=== PATIENT | female | born 1985 | race Caucasian/White ===

== ENCOUNTER → 2020-08-18 | Day surgery (SDC) | payer BC ==
--- OUTSIDE RECORDS SUMMARY | 2020-08-18 10:14 | XMS REPORT | Continuity of Care Document ---
:1985 Author Organization [facility] t Address [address] [place] [address] Care Team Providers Name Role Phone JOHN DAWKINS Primary Care Physician Unavailable YVONNE ARREDONDO Attending Clinician Unavailable Yvonne Arredondo NP Attending Clinician John Dawkins MD Attending Clinician Oscar RUBIO Attending Clinician Unavailable Payers Payer Name Policy Type Policy Number Effective Date Expiration Date S chris [place] [id number] 2019 00:00:00 Problems This patient has no known problems. Allergies, Adverse Reactions, Alerts This patient has no known allergies or adverse reactions. Family History Family Member Diagnosis Comments Start Date Stop Date Source Natural mother Pancreatic cancer MD Martinez Natural sister Breast cancer MD Dread leblanc Social History Social Habit Start Date Stop Date Quantity Comments Source History of tobacco Current every day MD Martinez use smoker Sex Assigned At F MD Ruelas on Exposure to Not sure MD Martinez SARS-CoV-2 (event) Cigarettes smoked 2020-07-24 2020-07-24 MD Dread leblanc current (pack per 00:00:00 00:00:00 day) - Reported Tobacco use and 2020-07-24 2020-07-24 Never used MD Ruelas on exposure 00:00:00 00:00:00 Alcohol intake 2020-07-24 2020-07-24 Current drinker MD Alondra zayas 00:00:00 00:00:00 of alcohol (finding) Tobacco Comment 2020-07-24 2020-07-24 On and off since MD Martinez 00:00:00 00:00:00 2001 Alcohol Comment 2020-07-24 2020-07-24 1-2/month MD Ruelas on 00:00:00 00:00:00 Smoking Status Start Date Stop Date Source Current every day smoker 2020-07-24 00:00:00 MD Martinez Medications Ordered Filled Start Stop Current Ordering Indication Dosage Frequency Signature Comments Components Source Medication Medication Date Date Medication? Clinician (SIG) Name Name traZODone 2019-09 Yes (DESYREL) 0-05 Anderso 100 mg 00:00: n tablet 00 ALPRAZolam Yes (Xanax) 0.5 9-07 Anderso mg tablet 00:00: n 00 ARIPiprazol Yes MD cain (Abilify) 9-07 Anderso 5 mg tablet 00:00: n 00 vilazodone Yes (Viibryd) 9-07 Anderso 40 mg tab 00:00: n 00 fenofibrate Yes (TRIGLIDE) 8-03 Anderso 160 mg 00:00: n tablet 00 nebivolol Yes 10mg Take 10 mg (BYSTOLIC) 7-29 by mouth. Dread rso 10 mg 00:00: n tablet 00 lisinopril Yes (PRINIVIL,Z 6-29 Anderso ESTRIL) 10 00:00: n mg tablet 00 Vital Signs Vital Name Observation Time Observation Value Comments Source HEIGHT 2020-07-24 09:39:19 157.5 cm WEIGHT 2020-07-24 09:39:19 90.71 kg HEIGHT 2020-07-24 09:39:19 157.5 cm WEIGHT 2020-07-24 09:39:19 90.71 kg Systolic blood pressure 2020-07-24 15:39:19 114 mm[Hg] MD Martinez Diastolic blood pressure 2020-07-24 15:39:19 62 mm[Hg] MD Martinez Heart rate 2020-07-24 15:39:19 76 /min MD Dougherty son Respiratory rate 2020-07-24 15:39:19 16 /min MD Blaine conn Body height 2020-07-24 15:39:19 157.5 cm MD Dougherty ernesto Body weight 2020-07-24 15:39:19 90.71 kg MD Dougherty ernesto BMI 2020-07-24 15:39:19 36.57 kg/m2 MD Farhat orozco Body temperature 2020-07-22 21:05:00 36.61 Kelly MD Blaine conn Procedures Procedure Date / Time Performed Performing Clinician [facility] e COVID-19 2020-07-22 21:09:00 Ross Dawkins MD And jes Encounters Start End Encounter Admission Attending Care Care Encounter Source Date/Time Date/Time Type Type Clinicians Facility Department ID 2020-07-24 2020-07-24 Outpatient JOE PICHARDO MDA, MDA [id number] 09:21:19 10:05:41 Suraj hines 2020-07-24 2020-07-24 Outpatient JOE PICHARDO MDA, MDA [id number] 09:18:35 09:19:16 Suraj hines 2020-07-22 2020-07-22 Outpatient MERLIN ARREDONDOJOE MDA, MDA [id number] 15:03:44 15:15:39 Surajdilip hines 2020-07-22 2020-07-22 Outpatient [facility] [id number] [facility]00 [facility] Clinics 2020-06-24 2020-06-24 Outpatient [facility] [id number] [facility]00 [facility] Clinics Results Test Description Test Time Test Comments Results Result Comments Source MD STARKEYIDStuart19 (MAXIM-CoV-2) PCR Asymptomatic 2020-07-23 12:25:58 Test Item Value Reference Range Interpretation Comme nts COVID19 SARS Indication (test New Patient code = 37385) COVID19 SARS Result (test code Not Detected Not Detected = 29630-8) COVID19 SARS Interpretation SARS-CoV-2 NOT Detected. Reference (test code = 57705) Range: Not Detected Methodology: The Denise RealTime SARS-CoV-2 assay is a qualitative real-time reverse air transportation provider polymerase chain reaction (sports health club membership advisors-PCR) test to detect RNA from SARS-CoV-2 in nasal, nasopharyngeal and oropharyngeal swabs from patients with signs and symptoms of infection who are suspected of COVID-19 by their health care provider. The Denise RealTime SARS-CoV-2 performed on the Jetaport000 System is a dual target assay with primers and probes for the RdRp and N genes. Results must be interpreted within the context of all relevant clinical and laboratory findings, and epidemiological risk factors. Positive results are indicative of the presence of SARS-CoV-2 RNA; clinical correlation with patient history and other diagnostic information is necessary to determine patient infection status. Positive results do not rule out bacterial infection or co-infection with other viruses. Negative results do not preclude SARS-CoV-2 infection and should not be used as the sole basis for patient management decisions. The Denise RealTime SARS-CoV-2 assay is for in vitro diagnostic use under FDA Emergency Use Authorization only. Testing is limited to laboratories certified under the Clinical Laboratory Improvement Amendments of 1988 (CLIA), 42U.S.C. 263a, to perform high complexity tests. The Test was performed by the CLIA-certified, high-complexity Molecular Diagnostics Laboratory (MDL) at [facility] under the Food and Drug Administration (FDA) s Emergency Use Authorization. Factsheet for patients: https://www.mdanderson.org/AbbottFactS heetPatientsFactsheet for healthcare providers: https://www.mdanderson.org/AbbottFactS heetHCP Test performed by:[facility] [address] [place] [address] MD Martinez
--- OUTSIDE RECORDS SUMMARY | 2020-08-18 10:14 | XMS REPORT ---
:1985 Author Organization [facility] Address [address], [facility] [address] [place] [address] Care Team Providers Name Role Phone Ezekiel Thacker [phone] PROBLEMS Type Condition ICD9-CM [id number] Onset Condition SNOMED Code Notes Code Code Dates Status Problem Piriformis G57.00 Active 099556924 syndrome Problem Sciatica M54.30 Active 25795196 ALLERGIES No Known Allergies ENCOUNTERS from 1984 to 2020-06-30 Encounter Location Date Provider Diagnosis [facility] [address] Jun, Ezekiel Thacker Pain in pelvis R10.2 [facility] [address] ; [place], [place] bursitis of rig ht hip [id number] M70.61 ; Sciati ca M54.30 and Piri formis syndrome G57.00 IMMUNIZATIONS No Information SOCIAL HISTORY Tobacco Use: Social History Observation Description Date Details (start date - stop date) Current Smoker Sex Assigned At : Social History Observation Description Sex Assigned At Unknown Alcohol Screen Question Answer Notes Did you have a drink containing alcohol in the past Yes year? Points 4 Interpretation Positive How often did you have 6 or more drinks on one Less than mon thly (1 point) occasion in the past year? How many drinks did you have on a typical day when 5 or 6 (2 points) you were drinking in the past year? How often did you have a drink containing alcohol Monthly or less (1 point) in the past year? Tobacco Use/Smoking Question Answer Notes Additional Findings: Tobacco User Heavy cigarette smoker (20 -39 cigs/day) Are you a current smoker How often do you smoke cigarettes? every day REASON FOR REFERRAL No Information VITAL SIGNS Height 62 in Jun, Weight 195 lbs Jun, Temperature 97.1 degrees Fahrenheit Jun, BMI 35.66 kg/m2 Jun, Blood pressure systolic 126 mm Hg Jun, Blood pressure diastolic 84 mm Hg Jun, MEDICATIONS Medication SIG (Take, Route, Frequency, Start Date End Date Status Duration) Tylenol Active Abilify Active Xanax Active Bystolic Active MethylPREDNISolone 4 MG as directed Orally Jun, Active Fenofibrate Active Viibryd Active Lisinopril Active PROCEDURES No Information RESULTS No Results REASON FOR VISIT NEW PT: RT HIP PAIN MEDICAL (GENERAL) HISTORY Type Description Date Medical History HTN Medical History HLD Medical History depression Medical History anxiety Surgical History appendectomy Goals Section No Information Health Concerns No Information MEDICAL EQUIPMENT No Information MENTAL STATUS No Information FUNCTIONAL STATUS No Information ASSESSMENTS Encounter Date Diagnosis Notes Jun, Sciatica (ICD-10 - M54.30) Jun, Trochanteric bursitis of right hip (ICD- 10 - M70.61) Jun, Piriformis syndrome (ICD-10 - G57.00) Jun, Pain in pelvis (ICD-10 - R10.2) PLAN OF TREATMENT Medication Medication Name Sig Start Date Stop Date MethylPREDNISolone 4 MG as directed Orally Jun, Treatment Notes Assessment Notes Clinical Notes Trochanteric bursitis of right hip -proceed with conservativ e treatment measures including a Medrol pack, home exercise program and formal physical therapy-return to clinic in 6 weeks for reevaluation-she will remain out of work during PT as her pain improves and she is able to mobilize without a limp Sciatica -proceed with conservative treatment measures including a Medrol pack, home exercise program and formal physical therapy-return to clinic in 6 weeks for reevaluation-she will remain out of work during PT as her pain improves and she is able to mobilize without a limp Piriformis syndrome -proceed with conservative treatment measures including a Medrol pack, home exercise program and formal physical therapy-return to clinic in 6 weeks for reevaluation-she will remain out of work during PT as her pain improves and she is able to mobilize without a limp Treatment Notes Test Name Order Date XR PELVIS (43626) 2020-06-30 Next Appt Details 6 Weeks Reason: Provider Name:Ezekiel Thacker, 2020-08-05 1 0:00:00 AM, [address], [address], [place], [address], Insurance Providers Payer Name Payer Payer Insured Name Patient Coverage Covera End Address Phone Relationship to Start Date Fly e Insured [employer] [phone] Krishna Newton self and Blue [id number] [facility] [address]
--- OUTSIDE RECORDS SUMMARY | 2020-08-18 10:14 | XMS REPORT ---
:1985 Author Organization [facility] Address [address] , [facility] [address] [place] [address] Care Team Providers Name Role Phone Ezekiel Thacker Unavailable [phone] PROBLEMS Type Condition ICD9-CM [id number] Onset Condition SNOMED Code Notes Code Code Dates Status Problem Piriformis G57.00 Active 548794302 syndrome Problem Sciatica M54.30 Active 10360338 ALLERGIES No Known Allergies ENCOUNTERS from 1984 to 2020-07-24 Encounter Location Date Provider Diagnosis [facility] [address] Jul, Ezekiel Thacker [facility] hanteric bursitis [facility] [address] hip M70.61 ; [place], [place] Pain in pelvis R10.2 [id number] ; Sciatica M54. 30 and Piriformis synd bayron G57.00 IMMUNIZATIONS No Information SOCIAL HISTORY Tobacco Use: Social History Observation Description Date Details (start date - stop date) Current Smoker Sex Assigned At : Social History Observation Description Sex Assigned At Unknown Alcohol Screen Question Answer Notes Did you have a drink containing alcohol in the past year? No Points 0 Interpretation Negative Tobacco Use/Smoking Question Answer Notes Additional Findings: Tobacco User Heavy cigarette smoker (20 -39 cigs/day) Are you a current smoker How often do you smoke cigarettes? every day REASON FOR REFERRAL No Information VITAL SIGNS Height 62 in Jul, Weight 195 lbs Jul, Temperature 97.3 degrees Fahrenheit Jul, BMI 35.66 kg/m2 Jul, Blood pressure systolic 124 mm Hg Jul, Blood pressure diastolic 82 mm Hg Jul, MEDICATIONS Medication SIG (Take, Route, Frequency, Start Date End Date Status Duration) Viibryd Active Lisinopril Active Abilify Active Tylenol Active Fenofibrate Active Bystolic Active Xanax Active MethylPREDNISolone 4 MG as directed Orally Jun, Not-Taking PROCEDURES No Information RESULTS No Results REASON FOR VISIT F/U RT HIP PAIN MEDICAL (GENERAL) HISTORY Type Description Date Medical History HTN Medical History HLD Medical History depression Medical History anxiety Surgical History appendectomy Goals Section No Information Health Concerns No Information MEDICAL EQUIPMENT No Information MENTAL STATUS No Information FUNCTIONAL STATUS No Information ASSESSMENTS Encounter Date Diagnosis Notes Jul, Sciatica (ICD-10 - M54.30) Jul, Pain in pelvis (ICD-10 - R10.2) Jul, Piriformis syndrome (ICD-10 - G57.00) Jul, Trochanteric bursitis of right hip (ICD- 10 - M70.61) PLAN OF TREATMENT Treatment Notes Assessment Notes Clinical Notes Trochanteric bursitis of right hip -pain has improved-comple te PT and continue with home exercises-f/u as needed-may return to work next Saturday 07/28 without restrictions Sciatica -pain has improved-complete PT and continue with home exercises-f/u as needed-may return to work next Saturday 07/28 without restrictions Piriformis syndrome -pain has improved-complete PT and continue with home exercises-f/u as needed-may return to work next Saturday 07/28 without restrictions Next Appt Details prn Reason: Insurance Providers Payer Name Payer Payer Insured Name Patient Coverage Covera ge End Address Phone Relationship to Start Date Fly e Insured [employer] [phone] Krishna Newton self and Blue [id number] [facility] [address]
--- NOTE | 2020-08-18 11:33 | RAD REPORT ---
EXAM DESCRIPTION: US - Breast Core BX w/US Guidance - 08/18/2020 10:49 am CLINICAL HISTORY: N63.13 COMPARISON: July 22 mammogram and ultrasound studies. TECHNIQUE: The patient presents for ultrasound-guided biopsy of a previously detailed right breast m ass. The ultrasound-guided core biopsy procedure, risks and alternatives were discussed with the patient i n detail. After answering all questions, both oral and written consent were obtained. Time out proced ure was performed. The patient had no contraindicated allergy or medication history. Preliminary imaging identified the approximately 10-12 mm periareolar right mass. The right breast wa s prepped and draped in the usual sterile fashion. From an inferior approach, skin and deeper tissues were anesthetized with 1% lidocaine. Under direct sonographic visualization a 14 gauge vacuum assist ed core biopsy needle was advanced and placed at the margin of the mass. There were a total of 3 core biopsies obtained under direct sonographic guidance. The mass did appear to have distortion in conto ur supporting transit of the biopsy needle through the small mass. At the conclusion of the procedure a localization clip was placed under sonographic guidance. Post biopsy imaging showed no hematoma or measurable bleeding within the breast. Hemostasis was obtai agnieszka at the skin site with a sterile bandage placed. Post procedure care and precaution instructions were given to the patient. IMPRESSION: 1. Ultrasound-guided core biopsy was performed of the right breast mass. All obtained ma terial was given to pathology for histologic assessment. 2. Post biopsy localization clip was placed under ultrasound guidance.
== END ==
LOC: DS 09:13
PROVIDERS: ATTEND Clinical Nurse Specialist Women's Health
DX: N63.13 Unspecified lump in the right breast, lower outer quadrant (principal)
CPT/HCPCS: 19083; 88305

== ENCOUNTER 2022-07-27 20:50 | Emergency (ER) | payer BC ==
--- OUTSIDE RECORDS SUMMARY | 2022-07-27 20:53 | XMS REPORT | Clinical Summary ---
:1985 Author Organization [facility] MD Dougherty [facility] Address [address] [place] [address] Care Team Providers Name Role Phone Ross Car MD Primary Care Provider Allergies Active Allergy Reactions Severity Noted Date Comments Coconut Hives 04/12/2012 Venom-Wasp Swelling 04/12/2012 Medications Medication Sig Dispensed Refills Start Date End Date Status ALPRAZolam (Xanax) 0.5 0 05/26/2020 Active mg tablet ARIPiprazole (Abilify) 5 0 05/26/2020 Active mg tablet fenofibrate (TRIGLIDE) 0 04/21/2020 Active 160 mg tablet lisinopril 0 03/17/2017 Active (PRINIVIL,ZESTRIL) 10 mg tablet traZODone (DESYREL) 100 0 06/23/2020 Active mg tablet vilazodone (Viibryd) 40 0 05/26/2020 Active mg tab nebivolol (BYSTOLIC) 10 Take 10 mg by 0 04/16/2017 Active mg tablet mouth. Active Problems No known active problems Surgical History Surgery Date Site/Laterality Comments APPENDECTOMY 09/19/2011 - 09/18/2012 TUBAL LIGATION 09/19/2008 - 09/18/2009 Medical History Medical History Date Comments Cervical cancer Dx'd in 2009 / Tx'd in [place] - 35 rounds of XRT & chemo Hyperlipidemia Insomnia H/O: depression Anxiety Hypertension Family History Medical History Relation Name Comments Pancreatic cancer Mother Breast cancer Sister Relation Name Status Comments Mother Sister Alive Social History Tobacco Use Types Packs/Day Years Used Date Smoking Tobacco: Every Day Cigarettes 1 S tarted: 2001 Smokeless Tobacco: Never Tobacco Cessation: Ready to Quit: Yes Comments: On and off since 2001 Alcohol Use Standard Drinks/Week Comments Yes 0 (1 standard drink = 0.6 oz pure alcoho l) 1-2/month Sex Assigned at Date Recorded Female 07/17/2020 8:13 PM CDT Obstetrics History Last Filed Vital Signs Not on file Plan of Treatment Health Maintenance Due Date Last Done Comments COVID-19 Vaccination (#1) 05/27/1985 Results Not on fileafter 07/27/2021 Care Teams Early Childhood Special Educator Relationship Specialty Start Date End Date Ross Car MD PCP - General Dermatology 06/23/[address] [place] [id number]
--- OUTSIDE RECORDS SUMMARY | 2022-07-27 20:54 | XMS REPORT | Continuity of Care Document ---
:1985 Author Organization [facility] t Address [address] [place] [address] Care Team Providers Name Role Phone [phone] Primary Care Physician Unavailable JOE ARREDONDO Attending Clinician Unavailable Payers Payer Name Policy Type Policy Number Effective Date Expiration Date [place] [employer] PPO [id number] 2019 POS 00:00:00 [employer] and C1 [id number] Common [facility] Blue Cross and C1 [id number] Common [facility] Problems Condition Condition Condition Status Onset Resolution Last Treating Co mments Source Name Details Category Date Date Treatment Clinician Date Piriformis Piriformis Problem Active C ommon syndrome syndrome [facility] Sciatica Sciatica Problem Active Commo n [facility] Allergies, Adverse Reactions, Alerts Allergy Allergy Status Severity Reaction(s) Onset Inactive Treating Comm ents Source Name Type Date Date Clinician [place] Prop[place]i Active Hives Univers ty to 7-25 ity of adverse 00:00: [place] reaction 00 MD [facility] [place] Propensi Active Swelling Univ ers sp ty to 725 ity of adverse 00:00: [place] reaction 00 MD kingston hines [facility] Family History Family Member Diagnosis Comments Start Date Stop Date Source Natural mother Pancreatic cancer [facility] [place] [facility] Natural sister Breast cancer [facility] [place] [facility] Social History Social Habit Start Date Stop Date Quantity Comments Source History of Tobacco Current Smoker Co mmon Spirit - Use [facility] Sex Assigned At Common Sp pamela - [facility] Tobacco Comment 2020-07-24 2020-07-24 On and off since Uni versity of 00:00:00 00:00:[address] [place] [address] MD Farhat orozco [facility] Alcohol Comment 2020-07-24 2020-07-24 1-2/month Universit y of 00:00:00 00:00:00 [place] MD Farhat orozco [facility] Cigarettes smoked 2020-07-24 2020-07-24 Univers ity of current (pack per 00:00:00 00:00:00 [place] Zoe Walsh ) - Reported Cancer Ce nter Tobacco use and 2020-07-24 2020-07-24 Smokeless Universit y of exposure 00:00:00 00:00:00 tobacco non-user [facility] Alcohol intake 2020-07-24 2020-07-24 Current drinker Unive rsity of 00:00:00 00:00:00 of alcohol [place] MD Farhat orozco (finding) [facility] Smoking Status Start Date Stop Date Source Current Smoker 2020-07-22 00:00:00 Common Spiri t - [facility] Medications Ordered Filled Start Stop Current Ordering Indication Dosage Frequency Signature Comments Components Source Medication Medication Date Date Medication? Clinician (SIG) Name Name MethylPREDN MethylPREDN 2019-09 No MethylPRED ISolone 4 ISolone 4 0-06 NISolone 4 MG MG 00:00: MG 00 MethylPREDN MethylPREDN 2019-09 No MethylPRED ISolone 4 ISolone 4 0-06 NISolone 4 MG MG 00:00: MG 00 traZODone 2019-09 Yes Univers (DESYREL) 0-05 ity of 100 mg 00:00: [place] tablet 00 MD Anival hines [facility] ALPRAZolam Yes Univers (Xanax) 0.5 9-07 ity of mg tablet 00:00: [place] 00 MD Anival hines [facility] ARIPiprazol Yes Univer s e (Abilify) 9-07 ity of 5 mg tablet 00:00: [place] 00 MD Anival hines [facility] vilazodone Yes Univers (Viibryd) 05-26 ity of 40 mg tab 00:00: [place] 00 MD Anival hines [facility] fenofibrate Yes Univer s (TRIGLIDE) 04-21 ity of 160 mg 00:00: [place] tablet 00 MD Anival hines [facility] nebivolol Yes 10mg Take 10 mg Un eduard (BYSTOLIC) 04-16 by mouth. ity of 10 mg 00:00: [place] tablet 00 MD Anival hines [facility] lisinopril Yes Univers (PRINIVIL,Z 6 ity of ESTRIL) 10 00:00: [place] mg tablet 00 MD [facility] Tylenol Tylenol No Tylenol Abilify Abilify No Abilify Xanax Xanax No Xanax Bystolic Bystolic No Bystolic Fenofibrate Fenofibrate No Fenofibrat e Viibryd Viibryd No Viibryd Lisinopril Lisinopril No Lisinopril Viibryd Viibryd No Viibryd Lisinopril Lisinopril No Lisinopril Abilify Abilify No Abilify Tylenol Tylenol No Tylenol Fenofibrate Fenofibrate No Fenofibrat e Bystolic Bystolic No Bystolic Xanax Xanax No Xanax Vital Signs Vital Name Observation Time Observation Value Comments Source HEIGHT 2020-07-24 09:39:19 157.5 cm WEIGHT 2020-07-24 09:39:19 90.71 kg height 2020-07-22 08:30:00 62 [in_i] [facility] weight 2020-07-22 08:30:00 195 [lb_av] [facility] temperature 2020-07-22 08:30:00 97.3 [degF] [facility] bmi 2020-07-22 08:30:00 35.66 kg/m2 [facility] blood pressure 2020-07-22 08:30:00 124 mm[Hg] [facility] - systolic [facility] blood pressure 2020-07-22 08:30:00 82 mm[Hg] [facility] - diastolic [facility] height 2020-06-24 10:00:00 62 [in_i] [facility] weight 2020-06-24 10:00:00 195 [lb_av] [facility] temperature 2020-06-24 10:00:00 97.1 [degF] Common S pirit [facility] bmi 2020-06-24 10:00:00 35.66 kg/m2 [facility] blood pressure 2020-06-24 10:00:00 126 mm[Hg] [facility] - systolic [facility] blood pressure 2020-06-24 10:00:00 84 mm[Hg] Common [facility] - diastolic [facility] Procedures This patient has no known procedures. Plan of Care Planned Activity Planned Date Details Comments Source Future Scheduled 2022-03-24 COVID-19 Vaccination [facility] [place] Test 06:50:30 (#1) [code = COVID-19 MD [facility] Vaccination (#1)] Center Encounters Start End Encounter Admission Attending Care Care Encounter Source Date/Time Date/Time Type Type Clinicians Facility Department ID 2021-10-14 Outpatient STLMLC STLMLC [id number] Common 11:59:54 [id number] [facility] 2021-10-14 Outpatient STLMLC STLMLC [id number] Common 11:52:18 [id number] [facility] 2020-07-24 2020-07-24 Outpatient JOE PICHARDO MDA, MDA [id number] 09:21:19 10:05:41 Suraj o n 2020-07-24 2020-07-24 Outpatient JOE PICHARDO MDA, MDA [id number] 09:18:35 09:19:16 Suraj o n 2020-07-22 2020-07-22 Outpatient JOE PICHARDO MDA, MDA [id number] 15:03:44 15:15:39 Suraj o n 2020-07-22 2020-07-22 OFFICE STLMLC STLMLC [id number] Co mmon 00:00:00 00:00:00 VISIT EST Spir it PT LEVEL 3 - [facility] 2020-06-24 2020-06-24 OFFICE [facility] [id number] Co mmon 00:00:00 00:00:00 VISIT NEW Spir it PT LEVEL 4 - [facility] Results This patient has no known results.
[2022-07-27 21:41] LABS: Urine Blood Negative (Negative); Urine Glucose Negative (Negative); Urine Protein Negative (Negative); Urine Specific Gravity 1.015 (1.005-1.030); Urine pH 6.5 (5.0-7.0)
[2022-07-27] MEDS ORDERED: NITROGLYCERIN 0.4 MG/TAB SL ONE (21:42)
--- NOTE | 2022-07-27 21:42 | RAD REPORT ---
EXAM DESCRIPTION: RAD - Chest Single View - 07/27/2022 9:31 pm CLINICAL HISTORY: CHEST PAIN Chest pain. COMPARISON: No comparisons FINDINGS: Portable technique limits examination quality. Interstitial markings are mildly prominent. The heart is upper limit normal in size. No displaced fra ctures. IMPRESSION: Mildly prominent interstitial markings could indicate mild interstitial edema or pneumon itis.
[2022-07-27 22:03] LABS: Barbiturates NEGATIVE (NEGATIVE); Benzodiazepines NEGATIVE (NEGATIVE); Cocaine NEGATIVE (NEGATIVE); METHAMPHETAM NEGATIVE (NEGATIVE); Methadone NEGATIVE (NEGATIVE); Opiates NEGATIVE (NEGATIVE); Phencyclidine NEGATIVE (NEGATIVE); THC Cannibis NEGATIVE (NEGATIVE)
[2022-07-27] MEDS ORDERED: ASPIRIN 81 MG CHEWABLE TABLET ONE (22:03)
[2022-07-27 22:26] LABS: Hematocrit 41.3 % (36.0-45.0); Lymphocytes % 35.3 % (15.3-44.8); MCV 92.7 fL (80-100); MPV 8.5 fL (7.6-11.3); RBC Red Blood Cell Count 4.45 M/uL (3.86-4.86)
[2022-07-27 22:29] LABS: Urine Specific Gravity/Preg 1.015 (1.005-1.030)
[2022-07-27 22:46] LABS: Protime INR 0.95
[2022-07-27 23:02] LABS: ALT/SGPT 50 U/L (12-78); Albumin 3.8 g/dL (3.4-5.0); Alkaline Phosphatase 78 U/L (45-117); BUN Blood Urea Nitrogen 16 mg/dL (7-18); Bicarbonate 23 mmol/L (21-32); Bilirubin Total 0.2 mg/dL (0.2-1.0); Glomerular Filtration Rate 68 ml/min (=/>90); Glucose Level 120 mg/dL (74-106); NT PRO-BNP 154 pg/mL (<125); Protein, Total 7.3 g/dL (6.4-8.2); Sodium Level 137 mmol/L (136-145); Troponin High Sensitivity 7.7 pg/mL (<58.9)
[2022-07-27 23:03] LABS: AST/SGOT 23 U/L (15-37); Bilirubin Direct < 0.1 mg/dL (0-0.2); Magnesium 1.9 mg/dL (1.8-2.4); Potassium 3.7 mmol/L (3.5-5.1)
[2022-07-27] MEDS ORDERED: KETOROLAC 30 MG/ML INJ ONE (23:14)
--- NOTE | 2022-07-28 02:05 | EDPHYS ---
Physician Documentation [facility] Name: Dee Newton Age: 36 yrs Sex: Female : 1985 Arrival Date: 07/27/2022 Time: 20:55 Bed 6 Private MD: ED Physician Larry Vela HPI: 07/27 21:07 This 36 yrs old Female presents to ER via Unassigned with complaints of Chest Pain, cp Shortness Of Breath. 21:08 The patient or guardian reports chest pain that is located primarily in the anterior cp chest wall, left. The pain radiates to the left arm, the left shoulder, left back. Associated signs and symptoms: Pertinent positives: shortness of breath. 21:08 The chest pain is described as aching, a pressure. Duration: The patient or guardian cp reports a single episode, that is still ongoing. 21:08 Severity of pain: in the emergency department the pain is unchanged. cp Historical: - Allergies: 21:17 No Known Allergies; aa5 - PMHx: 21:17 Hypertensive disorder; depression; Anxiety; hyperlipidemia; aa5 - PSHx: 21:17 Appendectomy; aa5 - Immunization history:: Adult Immunizations not up to date. - Social history:: Smoking status: Patient reports the use of cigarette tobacco products, smokes one pack cigarettes per day. ROS: 21:10 Constitutional: Negative for body aches, chills, fever, poor PO intake. cp 21:10 Cardiovascular: Positive for chest pain, Negative for edema, palpitations. cp 21:10 Respiratory: Positive for shortness of breath, Negative for cough, wheezing. 21:10 Abdomen/GI: Negative for abdominal pain, vomiting, diarrhea, constipation. 21:10 Eyes: Negative for injury, pain, redness, and discharge. cp 21:10 ENT: Negative for drainage from ear(s), ear pain, sore throat, difficulty swallowing, difficulty handling secretions. 21:10 Skin: Negative for rash. 21:10 Neuro: Negative for altered mental status, dizziness, headache, syncope, weakness. cp 21:10 All other systems are negative. Exam: 21:15 Constitutional: The patient appears in no acute distress, alert, awake, cp non-diaphoretic, non-toxic, well developed, well nourished, obese. 21:15 Head/Face: Normocephalic, atraumatic. cp 21:15 Eyes: Periorbital structures: appear normal, Conjunctiva: normal, no exudate, no injection, Sclera: no appreciated abnormality, Lids and lashes: appear normal, bilaterally. 21:15 ENT: External ear(s): are unremarkable, Nose: is normal, Mouth: Lips: moist, Oral mucosa: moist, Posterior pharynx: Airway: no evidence of obstruction, patent. 21:15 Neck: ROM/movement: is normal, is supple, without pain, no range of motions limitations. 21:15 Chest/axilla: Inspection: normal. 21:15 Cardiovascular: Rate: tachycardic, Rhythm: regular, Edema: is not appreciated, JVD: is not appreciated. 21:15 Respiratory: the patient does not display signs of respiratory distress, Respirations: normal, no use of accessory muscles, no retractions, labored breathing, is not present, Breath sounds: are clear throughout, no decreased breath sounds, no stridor, no wheezing. 21:15 Abdomen/GI: Inspection: obese Palpation: abdomen is soft and non-tender, in all quadrants. 21:15 Back: pain, is absent, ROM is normal. 21:15 Neuro: Orientation: to person, place \T\ time. Mentation: is normal, Motor: moves all fours, strength is normal, Sensation: no obvious gross deficits. 21:20 ECG was reviewed by the Attending Physician. cp Vital Signs: 21:15 BP 148 / 92; Pulse 100; Resp 18; Temp 98.3(O); Pulse Ox 98% on R/A; Weight 102.51 kg; aa5 Height 5 ft. 2 in. (157.48 cm); Pain 5/10; 22:00 BP 116 / 66; Pulse 89; Resp 18; Pulse Ox 95% ; vc1 22:45 BP 108 / 69; Pulse 88; Resp 21; Pulse Ox 95% ; vc1 07/28 01:25 BP 117 / 59; Pulse 78; Resp 15; Pulse Ox 96% on R/A; ll3 07/27 21:15 Body Mass Index 41.34 (102.51 kg, 157.48 cm) aa5 MDM: 07/27 21:04 Patient medically screened. cp 22:00 Differential diagnosis: acute myocardial infarction, acute pericarditis, chest wall cp pain, cholecystitis, Cholelithiasis costochondritis, myocarditis, pericarditis, pneumonia, pneumothorax, pulmonary embolus. 07/28 02:00 ED course: Repeat troponin 7.7. Patient reports she has cardiology appointment on 08-05-2022. 02:00 Data reviewed: vital signs, nurses notes, lab test result(s), EKG, radiologic studies, cp CT scan, plain films, and as a result, I will discharge patient. 02:00 Special discussion: Based on the patient's history, exam, and Dx evaluation, there is no indication for emergent intervention or inpatient Tx. It is understood by the patient/guardian that if the Sx's persist or worsen they need to return immediately for re-evaluation. 07/27 21:10 Order name: Basic Metabolic Panel; Complete Time: 23:07 07/27 23:08 Interpretation: Normal except: GLUC 120; GFR 68. 07/27 21:10 Order name: CBC with Diff; Complete Time: 22:50 07/27 21:10 Order name: D-Dimer; Complete Time: 23:07 07/27 23:08 Interpretation: D-DIMER 972; Reviewed. 07/27 21:10 Order name: LFT's; Complete Time: 23:07 07/27 21:10 Order name: Magnesium; Complete Time: 23:07 07/27 21:10 Order name: NT PRO-BNP; Complete Time: 23:07 07/27 23:08 Interpretation: NT PRO-BNP 154; Reviewed. 07/27 21:10 Order name: PT-INR; Complete Time: 23:07 07/27 21:10 Order name: Troponin HS; Complete Time: 23:07 07/27 23:08 Interpretation: Troponin HS 7.7; Reviewed. 07/27 21:10 Order name: XRAY Chest (1 view); Complete Time: 22:50 07/27 21:10 Order name: UDS; Complete Time: 22:50 07/27 21:41 Order name: Urine --Ancillary (enter results); Complete Time: 22:50 07/27 21:42 Order name: Urine Dipstick-Ancillary; Complete Time: 22:50 EDMS 07/27 22:51 Order name: CT Chest For PE Angio 07/28 00:53 Order name: Troponin High Sensitivity cp 07/27 21:10 Order name: EKG; Complete Time: 21:11 cp 07/27 21:10 Order name: Cardiac monitoring; Complete Time: 21:41 cp 07/27 21:10 Order name: EKG - Nurse/Tech; Complete Time: 21:41 cp 07/27 21:10 Order name: IV Saline Lock; Complete Time: 21:51 cp 07/27 21:10 Order name: Labs collected and sent; Complete Time: 21:51 cp 07/27 21:10 Order name: O2 Per Protocol; Complete Time: 21:51 cp 07/27 21:10 Order name: O2 Sat Monitoring; Complete Time: 21:51 cp 07/27 21:10 Order name: Urine Dipstick-Ancillary (obtain specimen); Complete Time: 21:41 cp 07/27 21:10 Order name: Urine Test (obtain specimen); Complete Time: 21:41 cp EC/08 21:20 Rate is 89 beats/min. Rhythm is regular. UT interval is normal. QRS interval is normal. cp QT interval is normal. T waves are Inverted in lead III. Interpreted by me. Reviewed by me. Administered Medications: 21:51 Drug: Nitroglycerin 0.4 mg Route: Sublingual; vc1 23:13 Follow up: Response: No adverse reaction; Marked relief of symptoms vc1 22:08 Drug: Aspirin Chewable Tablet 324 mg Route: PO; vc1 23:13 Follow up: Response: No adverse reaction vc1 23:16 Drug: Ketorolac 15 mg Route: IVP; Site: right antecubital; ll3 Disposition Summary: 07/28/22 02:05 Discharge Ordered Location: Home cp Problem: new cp Symptoms: have improved cp Condition: Stable cp Diagnosis - Chest pain, unspecified cp Followup: cp - With: Private Physician - When: 2 - 3 days - Reason: Recheck today's complaints Discharge Instructions: - Discharge Summary Sheet cp - Nonspecific Chest Pain, Adult cp - Aspirin and Your Heart cp Forms: - Medication Reconciliation Form cp - Thank You Letter cp - Antibiotic Education cp - Prescription Opioid Use cp - Work release form vc1 - Family Work Release vc1 Prescriptions: - Diclofenac Sodium 75 mg Oral Tablet Sustained Release - take 1 tablet by ORAL route 2 times per day; 30 tablet; Refills: 0, Product cp Selection Permitted Signatures: Dispatcher [employer] Halie Vasquez, RN RN aa5 Jesús Hayward PA PA cp Loubet, Lynsea RN RN ll3 Kasandra Reynaga RN RN vc1
--- NOTE | 2022-07-28 02:05 | ER ---
Nurse's Notes [facility] Name: Dee Newton Age: 36 yrs Sex: Female : 1985 Arrival Date: 07/27/2022 Time: 20:55 Bed 6 Private MD: Diagnosis: Chest pain, unspecified Presentation: 07/27 21:15 Chief complaint: Patient states: palpitations chest pain SOB left arm and shoulder pain aa5 began at 2030 this evening. Coronavirus screen: Vaccine status: Patient reports being unvaccinated. Ebola Screen: Patient negative for fever greater than or equal to 101.5 degrees Fahrenheit, and additional compatible Ebola Virus Disease symptoms. Initial Sepsis Screen: Does the patient meet any 2 criteria? No. Patient's initial sepsis screen is negative. Does the patient have a suspected source of infection? No. Patient's initial sepsis screen is negative. Risk Assessment: Do you want to hurt yourself or someone else? Patient reports no desire to harm self or others. Onset of symptoms was July 27, 2022 at 20:30. 21:15 Method Of Arrival: Ambulatory aa5 21:15 Acuity: CHALINO 3 aa5 Triage Assessment: 21:18 General: Appears uncomfortable, obese, Behavior is calm, cooperative. Pain: Complains aa5 of pain in chest Pain radiates to left arm Pain currently is 5 out of 10 on a pain scale. Cardiovascular: Rhythm is sinus rhythm. Historical: - Allergies: 21:17 No Known Allergies; aa5 - PMHx: 21:17 Hypertensive disorder; depression; Anxiety; hyperlipidemia; aa5 - PSHx: 21:17 Appendectomy; aa5 - Immunization history:: Adult Immunizations not up to date. - Social history:: Smoking status: Patient reports the use of cigarette tobacco products, smokes one pack cigarettes per day. Screenin:10 Abuse screen: Denies threats or abuse. Nutritional screening: No deficits noted. vc1 Tuberculosis screening: No symptoms or risk factors identified. Fall Risk None identified. Assessment: 21:05 Reassessment: See triage assessment. vc1 21:15 Pain: Complains of pain in chest Pain began suddenly. vc1 22:00 Reassessment: No changes from previously documented assessment. Patient and/or family vc1 updated on plan of care and expected duration. Pain level reassessed. 23:11 Reassessment: Patient and/or family updated on plan of care and expected duration. Pain vc1 level reassessed. Patient states feeling better. Patient states symptoms have improved. Vital Signs: 21:15 BP 148 / 92; Pulse 100; Resp 18; Temp 98.3(O); Pulse Ox 98% on R/A; Weight 102.51 kg; aa5 Height 5 ft. 2 in. (157.48 cm); Pain 5/10; 22:00 BP 116 / 66; Pulse 89; Resp 18; Pulse Ox 95% ; vc1 22:45 BP 108 / 69; Pulse 88; Resp 21; Pulse Ox 95% ; vc1 07/28 01:25 BP 117 / 59; Pulse 78; Resp 15; Pulse Ox 96% on R/A; ll3 07/27 21:15 Body Mass Index 41.34 (102.51 kg, 157.48 cm) aa5 ED Course: 07/27 20:55 Patient arrived in ED. es 21:01 Jesús Hayward PA is PHCP. cp 21:01 Larry Vela MD is Attending Physician. cp 21:10 Patient has correct armband on for positive identification. Bed in low position. Call vc1 light in reach. Side rails up X2. Client placed on continuous cardiac and pulse oximetry monitoring. NIBP monitoring applied. 21:15 Arm band placed on right wrist. vc1 21:17 Triage completed. aa5 21:19 EKG completed in triage. Results shown to MD. aa5 21:33 XRAY Chest (1 view) In Process Unspecified. EDMS 21:51 UDS Sent. vc1 22:07 Kasandra Reynaga, RN is Primary Nurse. vc1 22:57 Patient maintains SpO2 saturation greater than 95% on room air. vc1 23:35 CT Chest For PE Angio In Process Unspecified. EDMS 07/28 02:21 No provider procedures requiring assistance completed. IV discontinued, intact, vc1 bleeding controlled, No redness/swelling at site. Pressure dressing applied. Administered Medications: 07/27 21:51 Drug: Nitroglycerin 0.4 mg Route: Sublingual; vc1 23:13 Follow up: Response: No adverse reaction; Marked relief of symptoms vc1 22:08 Drug: Aspirin Chewable Tablet 324 mg Route: PO; vc1 23:13 Follow up: Response: No adverse reaction vc1 23:16 Drug: Ketorolac 15 mg Route: IVP; Site: right antecubital; ll3 Medication: 22:57 VIS not applicable for this client. vc1 Outcome: 07/28 02:05 Discharge ordered by . heena 02:21 Discharged to home ambulatory, with significant other. vc1 02:21 Condition: good 02:21 Discharge instructions given to patient, Instructed on discharge instructions, follow up and referral plans. medication usage, Demonstrated understanding of instructions, follow-up care, medications, Prescriptions given X 1. 02:21 Patient left the ED. vc1 Signatures: Dispatcher [employer] EDSneha Platt Audri RN RN aa5 Jesús Hayward PA PA Ramesh Rivas RN RN ll3 Kasandra Reynaga RN RN vc1 Corrections: (The following items were deleted from the chart) 07/27 23:13 22:38 BP 116 / 66; Pulse 89bpm; Resp 18bpm; Pulse Ox 95%; ll3 vc1
[2022-07-28 06:52] VITALS: TEMP 98.3
[2022-07-28 06:56] VITALS: BP 117/59; O2SAT 96
--- NOTE | 2022-07-28 11:57 | RAD REPORT ---
EXAM DESCRIPTION: CT - Chest For Pe Angio - 07/27/2022 11:33 pm CLINICAL HISTORY: The patient is 36 years old and is Female; chest pain, shortness of breath TECHNIQUE: Axial computed tomographic angiography images of the chest with intravenous contrast. T his CT exam was performed using one or more of the following dose reduction techniques: automated e xposure control, adjustment of the mA and/or kV according to patient size, and/or use of iterative re construction technique. MIP reconstructed images were created and reviewed. Oblique reformatted images were created and reviewed. DLP: 851 mGy*cm COMPARISON: Chest radiograph of the same day. FINDINGS: PULMONARY ARTERIES: Unremarkable. No pulmonary embolism. AORTA: No acute findings. No thoracic aortic aneurysm. LUNGS: Bibasilar atelectasis. No focal consolidation. PLEURAL SPACE: Unremarkable. No significant effusion. No pneumothorax. HEART: Unremarkable. No cardiomegaly. No significant pericardial effusion. No evidence of RV dysfunction. BONES/JOINTS: No acute fracture. No dislocation. SOFT TISSUES: Unremarkable. LYMPH NODES: Unremarkable. No enlarged lymph nodes. LIVER: Hepatic steatosis. IMPRESSION: 1. No pulmonary embolism. No acute intrathoracic abnormality. 2. Hepatic steatosis. Electronically signed by: Grday Santamaria DO 07/27/2022 11:58 PM [employer] Due to temporary technical issues with the PACS/Fluency reporting system, reports are being signed by the in house radiologists without review as a courtesy to insure prompt reporting. The interpreting radiologist is fully responsible for the content of the report.
--- NOTE | 2022-07-29 06:32 | EKG ---
Test Date: 2022-07-27 Test Time: 21:09:41 Medical Affairs Leader: KENDRA MEASUREMENT RESULTS: Intervals: Rate: 89 SC: 172 QRSD: 88 QT: 362 QTc: 440 [place]: P: 33 SC: 172 QRS: 62 T: 17 INTERPRETIVE STATEMENTS: Normal sinus rhythm Normal ECG No previous ECG available for comparison Electronically Signed On 07-29-22 06:30:33 [employer] by Tres Baez
== END 2022-07-28 02:21 | disposition home or self-care (01) ==
LOC: ER 20:50
DX: R07.89 Other chest pain (principal); F17.210 Nicotine dependence, cigarettes, uncomplicated
CPT/HCPCS: 93005; 85025; 80048; 36415; 83735; 81025; 85610; 85379; 80076; 81003; 84484 ×2; 83880; 80307; 71275; 71045; 96374; 99285; Q9967